=== PATIENT | female | born 1965 | race Caucasian/White ===

== ENCOUNTER 2018-03-28 20:44 | Emergency (ER) | payer OTHER, SELFPAY ==
[~2018-03-28] VITALS: Ht 162.6 cm; Wt 105.0 kg
[~2018-03-28 20:44] MED LIST: MVI WITH IRON PO; RISPERDAL PO
[2018-03-28 22:31] LABS: APPEARANCE,URINE CLEAR (CLEAR); BILIRUBIN,URINE NEGATIVE (NEGATIVE); GLUCOSE, URINE (UA) NEGATIVE (NEGATIVE); KETONES,URINE NEGATIVE (NEGATIVE); LEUKOCYTE ESTERASE ,URINE NEGATIVE (NEGATIVE); NITRATE,URINE NEGATIVE (NEGATIVE); OCCULT BLOOD,URINE NEGATIVE (NEGATIVE); PROTEIN,URINE NEGATIVE (NEGATIVE); UROBILINOGEN,URINE 0.2 mg/dL (<=1.0)
[2018-03-28] MEDS ORDERED: KETOROLAC TROMETHAMINE 60 MG/2 ML VIAL IM ONE (22:45)
[2018-03-28 22:56] VITALS: BP 110/68
== END 2018-03-28 22:57 | disposition home or self-care (01) ==
LOC: EMS 20:46
DX: M54.6 Pain in thoracic spine (principal); M62.830 Muscle spasm of back; R35.0 Frequency of micturition; F31.9 Bipolar disorder, unspecified
CPT/HCPCS: 81003; 96372; 99283; J1885